=== PATIENT | male | born 1930 | race Caucasian/White ===

== ENCOUNTER 2016-11-27 17:54 | Emergency (ER) | payer MEDICARE, OTHER ==
[~2016-11-27] VITALS: Ht 175.3 cm; Wt 78.0 kg
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
--- NOTE | 2016-11-27 18:16 | NUR ---
DR GARCIA AT BS FOR EVAL.
[2016-11-27] MEDS ORDERED: TDAP [DIPH/PERTUSSIS/TET] 0.5 ML VIAL IM ONE ×2 (18:30)
[2016-11-27] MEDS ORDERED: ACETAMINOPHEN ES 500 MG TABLET PO ONE (18:30)
[2016-11-27] MEDS ORDERED: LIDOCAINE /MPF 1% VIAL 5 ML VIAL ONE (18:39)
[2016-11-27] MEDS ORDERED: ACETAMINOPHEN ES 500 MG TABLET ONE (20:23)
--- NOTE | 2016-11-27 20:26 | NUR ---
Patient discharged to home in stable condition. Written and verbal after care instructions given. Patient verbalizes understanding of instruction. Patient is ambulatory with a steady gait, accompanied by family going home. No futher complaints.
[2016-11-27 20:27] VITALS: BP 154/74
== END 2016-11-27 20:28 | disposition home or self-care (01) ==
LOC: ER 17:57 → EDSEX 17:57 → ER 20:28
DX: S09.90XA Unspecified injury of head, initial encounter (principal); S01.112A Laceration without foreign body of left eyelid and periocular area, initial encounter; S80.02XA Contusion of left knee, initial encounter; S80.01XA Contusion of right knee, initial encounter; I10 Essential (primary) hypertension; Z23 Encounter for immunization; W07.XXXA Fall from chair, initial encounter; Y93.89 Activity, other specified; Y92.89 Other specified places as the place of occurrence of the external cause; Y99.9 Unspecified external cause status
CPT/HCPCS: 12011; 70450; 70486; 90471; 90715; 93005; 99284; A4606; A6402; A6403; J3490; Z7610

== ENCOUNTER 2016-12-02 13:20 | Emergency (ER) | payer MEDICARE, OTHER ==
[~2016-12-02] VITALS: Ht 154.9 cm; Wt 86.2 kg
[2016-12-02 13:20] VITALS: BP 158/75
== END 2016-12-02 14:20 | disposition home or self-care (01) ==
LOC: ER 13:22
DX: S01.112D Laceration without foreign body of left eyelid and periocular area, subsequent encounter (principal); I10 Essential (primary) hypertension
CPT/HCPCS: Z7502